=== PATIENT | female | born 1980 | race Caucasian/White ===

== ENCOUNTER 2021-12-19 19:16 | Emergency (ER) | payer BC ==
[~2021-12-19] VITALS: Ht 172.7 cm; Wt 68.0 kg
[2021-12-19 19:55] LABS: BASO # 0.1 10*3/uL (0.0-0.1); BASO % 0.8 % (0.0-1.0); EOS # 0.2 10*3/uL (0.0-0.4); EOS % 1.5 % (1.0-4.0); HEMATOCRIT 38.9 % (37.0-47.0); LYMPH # 3.1 10*3/uL (1.3-4.4); LYMPH % 27.5 % (27.0-41.0); MEAN CELL VOLUME 86.6 fl (81.0-99.0); MEAN CORPUSCULAR HGB 30.5 pg (27.0-31.0); MEAN CORPUSCULAR HGB CONC 35.2 g/dl (33.0-37.0); MEAN PLATELET VOLUME 9.2 fl (9.6-12.3); MONO # 0.6 10*3/uL (0.1-1.0); MONO % 5.5 % (3.0-9.0); NEUT # 7.2 10*3/uL (2.3-7.9); NEUT % 64.3 % (47.0-73.0); PLATELET COUNT AUTOMATED 320 10*3/uL (130-400); RED BLOOD COUNT 4.49 10*6/uL (4.10-5.10); RED CELL DISTRI WIDTH 12.2 % (0-14.5); WHITE BLOOD COUNT 11.2 10*3/uL (4.8-10.8)
[2021-12-19 20:16] LABS: ALKALINE PHOSPHATASE 89 U/L (45-117); BUN 16 mg/dl (7-24); CHLORIDE 104 mmol/L (98-107); CREATININE 0.82 mg/dL (0.55-1.02); POTASSIUM 3.7 mmol/L (3.5-5.1); SGOT/AST 18 IU/L (3-35); SGPT/ALT 22 U/L (12-78); SODIUM 137 mmol/L (136-145); TOTAL PROTEIN 7.7 gm/dL (6.4-8.2)
== END 2021-12-19 22:48 | disposition home or self-care (01) ==
LOC: ED 19:16
PROVIDERS: Emergency Medicine
DX: R00.2 Palpitations (principal); F41.9 Anxiety disorder, unspecified; Z88.0 Allergy status to penicillin

== ENCOUNTER 2023-04-25 19:05 | Emergency (ER) | payer BC ==
[~2023-04-25] VITALS: Ht 165.1 cm; Wt 72.6 kg
[2023-04-25 19:35] LABS: MEAN CELL VOLUME 91.9 fl (81.0-99.0); MEAN CORPUSCULAR HGB 31.1 pg (27.0-31.0); MEAN CORPUSCULAR HGB CONC 33.8 g/dl (33.0-37.0); MEAN PLATELET VOLUME 9.4 fl (9.6-12.3); PLATELET COUNT AUTOMATED 504 10*3/uL (130-400); RED BLOOD COUNT 4.57 10*6/uL (4.10-5.10); RED CELL DISTRI WIDTH 12.7 % (0-14.5); WHITE BLOOD COUNT 14.3 10*3/uL (4.8-10.8)
[2023-04-25 19:36] LABS: MANUAL DIFF REFLEX YES
[2023-04-25 19:57] LABS: ALKALINE PHOSPHATASE 98 U/L (46-116); BUN 12 mg/dl (9-23); CHLORIDE 104 mmol/L (98-107); POTASSIUM 3.7 mmol/L (3.4-5.1); SGPT/ALT 36 U/L (10-49)
[2023-04-25 19:59] LABS: BASOPHILS 3 % (0-1); PLATELET SUFFICIENCY HIGH (NORMAL); TOTAL CELLS COUNTED 100 #CELLS
[2023-04-25 20:00] LABS: BURR CELLS FEW
[2023-04-25] MEDS ORDERED: ZITHROMAX250 MG PO (21:01)
== END 2023-04-25 21:16 | disposition home or self-care (01) ==
LOC: ED 19:05
PROVIDERS: Nurse Practitioner Family
DX: I47.1 Supraventricular tachycardia (principal); R09.81 Nasal congestion; Z88.0 Allergy status to penicillin

== ENCOUNTER → 2023-06-07 | Outpatient (CLI) | payer BC ==
[~2023-06-07] MED LIST: ZITHROMAX250 MG PO
== END | disposition home or self-care (01) ==
LOC: CARD 13:00
PROVIDERS: ATTEND Internal Medicine Cardiovascular Disease
DX: I47.10 Supraventricular tachycardia, unspecified (principal); R00.2 Palpitations

== ENCOUNTER 2024-06-15 21:07 | Inpatient (IN) | payer OTHER ==
[~2024-06-15] VITALS: Ht 172.7 cm; Wt 59.0 kg
[2024-06-15] MEDS ORDERED: Amiodarone Hydrochloride 150 MG,IV 1 EA in DEXTROSE 5% 100 ML IV ONE (21:25)
[2024-06-15 21:27] VITALS: BP 117/86
[2024-06-15] MEDS ORDERED: ADENOSINE 6 MG/2 ML VIAL IV ONE (21:29)
[2024-06-15] MEDS ORDERED: SODIUM CHLORIDE 0.9% 1,000 ML IV ONE (21:31)
[2024-06-15 21:35] LABS: BASO # 0.1 10*3/uL (0.0-0.1); BASO % 0.8 % (0.0-1.0); EOS # 0.2 10*3/uL (0.0-0.4); HEMATOCRIT 43.4 % (37.0-47.0); LYMPH # 3.9 10*3/uL (1.3-4.4); LYMPH % 42.9 % (27.0-41.0); MEAN CELL VOLUME 94.1 fl (81.0-99.0); MEAN CORPUSCULAR HGB 31.2 pg (27.0-31.0); MEAN CORPUSCULAR HGB CONC 33.2 g/dl (33.0-37.0); MEAN PLATELET VOLUME 9.6 fl (9.6-12.3); MONO # 0.5 10*3/uL (0.1-1.0); MONO % 5.9 % (3.0-9.0); NEUT # 4.4 10*3/uL (2.3-7.9); NEUT % 48.2 % (47.0-73.0); PLATELET COUNT AUTOMATED 332 10*3/uL (130-400); RED BLOOD COUNT 4.61 10*6/uL (4.10-5.10); RED CELL DISTRI WIDTH 12.5 % (0-14.5); WHITE BLOOD COUNT 9.2 10*3/uL (4.8-10.8)
[2024-06-15] MEDS ORDERED: Amiodarone Hydrochloride 900 MG in DEXTROSE 5% 500 ML IV SCH (21:40)
[2024-06-15 21:53] LABS: BUN 15 mg/dl (9-23); CHLORIDE 106 mmol/L (98-107); POTASSIUM 3.6 mmol/L (3.4-5.1)
[2024-06-15 22:05] LABS: BILIRUBIN Negative (Negative); BLOOD Negative (Negative); CLARITY Cloudy (Clear); COLOR Yellow (Yellow); GLUCOSE Negative (Negative); KETONE Negative (Negative); LEUKO ESTERASE 1+ (Negative); NITRITE Negative (Negative); UROBILINOGEN 0.2 E.U./dl (0.0-1.0)
[2024-06-15 22:13] LABS: BACTERIA 1+; MUCOUS 1+; RBC 0-2 rbc/hpf (0-2)
[2024-06-15] MEDS ORDERED: ASPIRIN 325 MG TAB PO ONE (23:45)
[2024-06-16] MEDS ORDERED: Ceftriaxone Sodium 1 GM/10 ML SYR IV ONE (00:10)
[2024-06-16] MEDS ORDERED: ACETAMINOPHEN 650 MG SUPP R PRN (00:15)
[2024-06-16] MEDS ORDERED: BISACODYL 10 MG SUPP R PRN (00:15)
[2024-06-16] MEDS ORDERED: Magnesium Hydroxide 30 ML UDC PO PRN (00:15)
[2024-06-16] MEDS ORDERED: ACETAMINOPHEN 325 MG TAB PO PRN (00:15)
[2024-06-16] MEDS ORDERED: BISACODYL 5 MG TAB PO PRN (00:15)
[2024-06-16] MEDS ORDERED: B COMPLEX1 EACH PO (00:38)
[2024-06-16] MEDS ORDERED: LORazepam 0.5 MG TAB PO ONE (00:59)
[2024-06-16] MEDS ORDERED: Doxycycline Hyclate 100 MG in SODIUM CHLORIDE 0.9% 250 ML IV SCH (02:00)
[2024-06-16] MEDS ORDERED: HEPARIN SODIUM 250 ML IV SCH (02:00)
[2024-06-16] MEDS ORDERED: Doxycycline Hyclate 100 MG CAP PO ONE (03:10)
[2024-06-16 03:26] LABS: BASO # 0.1 10*3/uL (0.0-0.1); BASO % 0.5 % (0.0-1.0); EOS # 0.2 10*3/uL (0.0-0.4); EOS % 1.3 % (1.0-4.0); HEMATOCRIT 38.2 % (37.0-47.0); LYMPH # 2.2 10*3/uL (1.3-4.4); LYMPH % 18.5 % (27.0-41.0); MEAN CELL VOLUME 94.3 fl (81.0-99.0); MEAN CORPUSCULAR HGB 31.4 pg (27.0-31.0); MEAN CORPUSCULAR HGB CONC 33.2 g/dl (33.0-37.0); MEAN PLATELET VOLUME 9.5 fl (9.6-12.3); MONO # 0.7 10*3/uL (0.1-1.0); MONO % 6.1 % (3.0-9.0); NEUT # 8.7 10*3/uL (2.3-7.9); NEUT % 73.3 % (47.0-73.0); PLATELET COUNT AUTOMATED 304 10*3/uL (130-400); RED BLOOD COUNT 4.05 10*6/uL (4.10-5.10); RED CELL DISTRI WIDTH 12.8 % (0-14.5); WHITE BLOOD COUNT 11.8 10*3/uL (4.8-10.8)
[2024-06-16 03:31] VITALS: BP 107/71
[2024-06-16 03:46] LABS: ALKALINE PHOSPHATASE 54 U/L (46-116); BUN 15 mg/dl (9-23); CHLORIDE 111 mmol/L (98-107); FREE T4 1.17 ng/dl (0.89-1.76); POTASSIUM 3.8 mmol/L (3.4-5.1); SGPT/ALT 46 U/L (5-49); TOTAL PROTEIN 6.3 gm/dL (6.0-8.0)
[2024-06-16 06:55] VITALS: BP 102/66
[2024-06-16] MEDS ORDERED: Doxycycline Hyclate 100 MG VIAL IV ONE (09:40)
[2024-06-16] MEDS ORDERED: SODIUM CHLORIDE 0.9% 250 ML BAG IV ONE (09:40)
[2024-06-16] MEDS ORDERED: ATORVASTATIN CALCIUM 40 MG TABLET PO SCH (10:00)
[2024-06-16] MEDS ORDERED: Enoxaparin Sodium 40 MG/0.4 ML SYR SC SCH (10:00)
[2024-06-16] MEDS ORDERED: ASPIRIN, CHEWABLE 81 MG TAB PO SCH (10:00)
[2024-06-16] MEDS ORDERED: Metoprolol Tartrate 25 MG TAB PO SCH (10:00)
[2024-06-16] MEDS ORDERED: Lopressor25 MG PO (10:38)
[2024-06-16] MEDS ORDERED: VIBRA-TAB100 MG PO (10:39)
== END 2024-06-16 11:22 | disposition home or self-care (01) | DRG 309 ==
LOC: ED 21:07 → EDHOLD 06-16 00:09
PROVIDERS: Internal Medicine; Student in an Organized Health Care Education/Training Program; ADMIT Student in an Organized Health Care Education/Training Program; ATTEND Student in an Organized Health Care Education/Training Program
DX: I47.19 Other supraventricular tachycardia (principal); I24.89 Other forms of acute ischemic heart disease; N39.0 Urinary tract infection, site not specified; R73.9 Hyperglycemia, unspecified; I49.9 Cardiac arrhythmia, unspecified; Z88.0 Allergy status to penicillin; Z82.49 Family history of ischemic heart disease and other diseases of the circulatory system; Z79.82 Long term (current) use of aspirin; Z79.899 Other long term (current) drug therapy

== ENCOUNTER 2025-06-30 07:38 | Emergency (ER) | payer OTHER ==
[~2025-06-30] VITALS: Ht 172.7 cm; Wt 68.0 kg
[~2025-06-30 07:38] MED LIST changes: +B COMPLEX1 EACH PO; +Lopressor25 MG PO; +VIBRA-TAB100 MG PO
== END 2025-06-30 08:11 | disposition home or self-care (01) ==
LOC: ED 07:38
DX: R00.2 Palpitations (principal); R09.81 Nasal congestion; Z86.79 Personal history of other diseases of the circulatory system; Z88.0 Allergy status to penicillin; Z79.899 Other long term (current) drug therapy